=== PATIENT | female | born 1995 | race African-American/Black ===

== ENCOUNTER 2016-09-13 21:20 | Emergency (ER) | payer OTHER ==
[~2016-09-13] VITALS: Ht 165.1 cm; Wt 95.0 kg
[2016-09-13] MEDS ORDERED: LIDOCAINE HCL 1% 20ML VIAL (Pyxis) INJ MC ONE (22:30)
[2016-09-13] MEDS ORDERED: HYDROCODONE/ACETAMINOPHEN 5/325MG TABLET PO ONE (22:30)
[2016-09-13] MEDS ORDERED: BACITRACIN ZINC OINT UDPKT TOP ONE (22:30)
[2016-09-13] MEDS ORDERED: TETANUS, DIPHTHERIA, PERTUSSIS VAC/PF 0.5ML (>7YR OLD) IM ONE (22:30)
[2016-09-13] MEDS ORDERED: ONDANSETRON 4MG ODT PO ONE (23:00)
[2016-09-13] MEDS ORDERED: MORPHINE SULFATE 10 MG/ML CPJ IM ONE (23:00)
[2016-09-13 23:30] VITALS: BP 130/90
== END 2016-09-14 | disposition home or self-care (01) ==
LOC: ER 21:25
DX: S51.812A Laceration without foreign body of left forearm, initial encounter (principal); I10 Essential (primary) hypertension; F12.10 Cannabis abuse, uncomplicated; Z88.6 Allergy status to analgesic agent; Y04.0XXA Assault by unarmed brawl or fight, initial encounter; Y93.89 Activity, other specified; Y92.89 Other specified places as the place of occurrence of the external cause; Y99.8 Other external cause status
CPT/HCPCS: 12002; 90471; 90715; 96372; 99284; J2270; J3490; X7700; Z7610; 99283